=== PATIENT | female | born 1970 | race Caucasian/White ===

== ENCOUNTER 2024-07-01 11:22 | Emergency (ER) | payer MEDICAID ==
[~2024-07-01] VITALS: Ht 162.6 cm; Wt 73.0 kg
[2024-07-01 11:24] VITALS: O2SAT 98
[2024-07-01 12:44] LABS: BASOPHILS % 0.2 % (0.0-2.0); EOSINOPHILS % 0.5 % (0.0-5.0); HEMATOCRIT. 34.7 % (36.0-48.0); LYMPHOCYTES % 11.9 % (20.0-50.0); MEAN CORPUSCULAR HEMOGLOBIN 31.9 pg (28.0-32.0); MEAN CORPUSCULAR HGB CONC 34.5 g/dL (31.0-37.0); MEAN CORPUSCULAR VOLUME 92.4 fL (81.0-99.0); NEUTROPHILS % 81.4 % (40.0-76.0); PLATELET 321 x1000/uL (130-400); RED BLOOD CELL COUNT 3.76 mill/uL (4.2-5.4); RED CELL DISTRIBUTION WIDTH 13.4 % (11.6-14.6); WHITE BLOOD COUNT 8.5 x1000/uL (4.5-11.0)
[2024-07-01 12:52] LABS: CHLORIDE 107 mEq/L (98-107); POTASSIUM 3.3 mEq/L (3.5-5.1); SODIUM 140 mEq/L (136-145)
[2024-07-01 12:53] LABS: CARBON DIOXIDE 26 mEq/L (21-32)
[2024-07-01 12:54] LABS: CALCIUM 9.4 mg/dL (8.7-10.4)
[2024-07-01 12:58] LABS: CREATININE 0.9 mg/dL (0.6-1.0)
[2024-07-01 12:59] LABS: GLUCOSE 105 mg/dL (70-105); TROPONIN I HIGH SENSITIVITY 30 ng/L (3.0-34); UREA NITROGEN BLOOD 14 mg/dL (9-23)
[2024-07-01 13:00] LABS: ALANINE AMINOTRANSFERASE 22 IU/L (10-49); ALBUMIN 4.2 g/dL (3.2-4.8); ASPARTATE AMINOTRANSFERASE 25 IU/L (<34)
[2024-07-01] MEDS: SODIUM CHLORIDE 0.9% 1,000 ML IV ONE (13:00)
[2024-07-01 13:01] LABS: BILIRUBIN DIRECT 0.2 mg/dL (<=3.0); BILIRUBIN TOTAL 0.6 mg/dL (0.1-1.0); PARTIAL THROMBOPLASTIN TIME 24.7 sec (23.4-31.0); PROTEIN TOTAL 7.4 g/dL (6.0-8.3)
[2024-07-01] MEDS: POTASSIUM CHLORIDE 20MEQ TABLET SR PO NR (13:40)
[2024-07-01 14:55] VITALS: BP 107/60; PULSE 65; RESP 18; TEMP 36.72516; O2SAT 98
[2024-07-01 15:16] LABS: TROPONIN I HIGH SENSITIVITY 42 ng/L (3.0-34)
== END 2024-07-01 14:59 | disposition home or self-care (01) ==
LOC: ER 11:22
DX: R04.0 Epistaxis (principal); R55 Syncope and collapse; I10 Essential (primary) hypertension; Z98.890 Other specified postprocedural states
CPT/HCPCS: 99284; 96360; 80076; 80048; 85025; 85610; 85730; 86850; 86900; 86901; 84484; 36415; 93005; J7030

== ENCOUNTER 2024-07-01 17:17 | Emergency (ER) | payer MEDICAID ==
[~2024-07-01] VITALS: Ht 162.6 cm; Wt 72.5 kg
[2024-07-01 17:24] VITALS: O2SAT 92
[2024-07-01 18:33] LABS: TROPONIN I HIGH SENSITIVITY 33 ng/L (3.0-34)
[2024-07-01] MEDS: SODIUM CHLORIDE 0.9% 1,000 ML IV ONE (18:45)
[2024-07-01 18:52] VITALS: TEMP 36.44736
[2024-07-01 20:05] LABS: HEMATOCRIT 31.8 % (36.0-48.0); MEAN CORPUSCULAR HEMOGLOBIN 32.3 pg (28.0-32.0); MEAN CORPUSCULAR HGB CONC 34.6 g/dL (31.0-37.0); MEAN CORPUSCULAR VOLUME 93.3 fL (81.0-99.0); PLATELET 325 x1000/uL (130-400); RED CELL DISTRIBUTION WIDTH 13.8 % (11.6-14.6); WHITE BLOOD COUNT 7.2 x1000/uL (4.5-11.0)
[2024-07-01 21:27] VITALS: BP 111/50; PULSE 82; RESP 18; O2SAT 100
== END 2024-07-01 21:28 | disposition home or self-care (01) ==
LOC: ER 17:17
DX: R55 Syncope and collapse (principal); R79.89 Other specified abnormal findings of blood chemistry; I95.9 Hypotension, unspecified; I10 Essential (primary) hypertension; Z90.710 Acquired absence of both cervix and uterus
CPT/HCPCS: 99283; 96360; 85027; 85379; 84484; 36415; J7030